=== PATIENT | male | born 1950 | race Caucasian/White ===

== ENCOUNTER 2017-11-13 11:09 | Inpatient (IN) | payer MEDICARE, OTHER ==
[~2017-11-13] VITALS: Ht 180.3 cm; Wt 67.0 kg
[2017-11-13] MEDS ORDERED: azithromycin/NS 500mg/250ml 250 ML IV ONE (11:20)
[2017-11-13] MEDS ORDERED: CefTRIAXone 2gm/D5W 50ml 50 ML IV ONE (11:20)
[2017-11-13] MEDS ORDERED: normal saline 1000ML IV soln IV ONE (11:20)
[2017-11-13] MEDS ORDERED: ipratropium/albuterol 3ml nebule NEB ONE (11:30)
[2017-11-13] MEDS ORDERED: methylPREDNISolone sod succ 125mg/2ml vial IV ONE (11:30)
[2017-11-13 11:49] LABS: BASOPHILS # (AUTO) 0.1 X10'3 (0-0.2); BASOPHILS % (AUTO) 2.1 % (0-1); EOSINOPHILS % (AUTO) 0.7 % (0-6); HEMATOCRIT 39.1 % (42.0-52.0); HEMOGLOBIN 13.3 g/dl (14.0-17.9); LYMPHOCYTES # (AUTO) 0.8 X10'3 (1.1-4.8); LYMPHOCYTES % (AUTO) 15.3 % (21-51); MEAN CORPUSCULAR HEMOGLOBIN 31.7 PG (27.0-31.0); MEAN CORPUSCULAR HGB CONC 33.9 % (33.0-36.5); MEAN CORPUSCULAR VOLUME 93.3 FL (78-98); MEAN PLATELET VOLUME 7.3 FL (7.4-10.4); MONOCYTES # (AUTO) 0.5 X10'3 (0-0.9); MONOCYTES % (AUTO) 9.4 % (2-12); NEUTROPHILS # (AUTO) 3.7 X10'3 (1.8-7.7); NEUTROPHILS % (AUTO) 72.5 % (42-75); PLATELET COUNT 190 X10'3 (140-440); RED BLOOD COUNT 4.18 X10'6 (4.70-6.10); RED CELL DISTRIBUTION WIDTH 13.6 % (11.5-14.5); WHITE BLOOD COUNT 5.1 X10'3 (4.5-11.0)
[2017-11-13 12:09] LABS: ALANINE AMINOTRANSFERASE 11 U/L (12-78); ALBUMIN 3.8 G/DL (3.4-5.0); ALBUMIN/GLOBULIN RATIO 1.1 (1.1-1.5); ALKALINE PHOSPHATASE 83 IU/L (46-116); ANION GAP 7 (8-16); ASPARTATE AMINO TRANSFERASE 13 U/L (10-37); BILIRUBIN,TOTAL 0.7 MG/DL (0.1-1.0); BLOOD UREA NITROGEN 13 MG/DL (7-18); BUN/CREATININE RATIO 13.3 (5.4-32.0); CALCIUM 8.8 MG/DL (8.5-10.1); CHLORIDE 99 MMOL/L (99-107); CREATININE 0.98 MG/DL (0.60-1.10); GLUCOSE 98 MG/DL (70-104); SODIUM 138 MMOL/L (135-145); TOTAL PROTEIN 7.4 G/DL (6.4-8.2); eGFR 76 ML/MIN
[2017-11-13 12:13] LABS: POTASSIUM 2.8 MMOL/L (3.5-5.1)
[2017-11-13] MEDS ORDERED: potassium Cl oral solution 20 MEQ/15 ML PO ONE (12:20)
[2017-11-13 12:24] LABS: CLARITY,URINE CLEAR (Clear); COLOR,URINE YELLOW (Yellow); GLUCOSE, URINE NEGATIVE (Neg); KETONES,URINE NEGATIVE (Neg); LEUKOCYTE ESTERASE ,URINE NEGATIVE (Neg); NITRITES, URINE NEGATIVE (Neg); OCCULT BLOOD,URINE SMALL (Neg); PROTEIN,URINE NEGATIVE (Neg)
[2017-11-13 12:32] LABS: UA COLLECTION TYPE STRAIGHT CATH
[2017-11-13 12:33] LABS: RBC,URINE 0-2 /HPF (0-2); WBC,URINE 0-4 /HPF (0-4)
[2017-11-13 12:34] LABS: BACTERIA,URINE FEW /HPF (Neg); SQUAMOUS EPITHELIAL CELL,UR MODERATE /LPF (FEW); TRANSITIONAL EPI CELLS,URINE FEW /HPF
[2017-11-13] MEDS ORDERED: magnesium hydroxide 30ml (MOM) UD suspension PO PRN (14:50)
[2017-11-13] MEDS ORDERED: mag hydrox/Alum hydrox/simeth 30ml oral suspension PO PRN (14:50)
[2017-11-13] MEDS ORDERED: ipratropium/albuterol 3ml nebule NEB PRN (14:50)
[2017-11-13] MEDS ORDERED: ondansetron/PF 4mg/2ml inj IV PRN (14:50)
[2017-11-13] MEDS ORDERED: magnesium 4gm in 100ml NS 100 ML IV PRN (14:50)
[2017-11-13] MEDS ORDERED: potassium Cl 20 mEq SR tablet PO PRN ×2 (14:50)
[2017-11-13] MEDS ORDERED: acetaminophen 325mg tablet PO PRN (14:50)
[2017-11-13] MEDS ORDERED: magnesium 1gm/100ml D5W IVPB 100 ML IV PRN (14:50)
[2017-11-13] MEDS ORDERED: potassium Cl 40MEQ/NS 500ml 500 ML IV PRN ×2 (14:50)
[2017-11-13] MEDS ORDERED: CLON-528 PO (14:58)
[2017-11-13] MEDS ORDERED: CLON0.252 PO ×2 (14:58)
[2017-11-13] MEDS ORDERED: AMA100C PO (14:58)
[2017-11-13] MEDS ORDERED: ALBU1POW2 INH (14:58)
[2017-11-13] MEDS ORDERED: CARB1TAB23 PO ×3 (14:58)
[2017-11-13] MEDS ORDERED: FLUT100D2 INH (14:58)
[2017-11-13] MEDS ORDERED: DOCU100C41 PO (14:58)
[2017-11-13] MEDS ORDERED: BUSP5TAB3 (14:58)
[2017-11-13] MEDS ORDERED: FINA5TAB11 PO (14:58)
[2017-11-13] MEDS ORDERED: GLYC1TAB11 PO (15:31)
[2017-11-13] MEDS ORDERED: LINA72CA PO (15:33)
[2017-11-13] MEDS ORDERED: OXYB5TAB11 PO (15:34)
[2017-11-13] MEDS ORDERED: PHEN95TA44 (15:35)
[2017-11-13] MEDS ORDERED: POLY17PO10 PO (15:36)
[2017-11-13] MEDS ORDERED: SENN-161 PO (15:37)
[2017-11-13] MEDS ORDERED: TERA5CAP4 PO (15:38)
[2017-11-13] MEDS ORDERED: TRAZ-219 PO (15:39)
[2017-11-13 17:20] VITALS: BP 190/101
[2017-11-13] MEDS: heparin, porcine 5000 units/ml vial SQ SCH (17:53)
[2017-11-13] MEDS: normal saline 1000ml 1,000 ML IV SCH (17:53)
[2017-11-13 20:00] VITALS: BP 147/96
[2017-11-13] MEDS: BUDESONIDE 0.25 MG/2 ML AMPUL.NEB IH SCH (20:00)
[2017-11-13] MEDS: sennosides 8.6mg tablet PO SCH (20:53)
[2017-11-13] MEDS: docusate sod 100mg capsule PO SCH (20:53)
[2017-11-13] MEDS: terazosin 5mg capsule PO SCH (20:54)
[2017-11-13] MEDS ORDERED: carbidoba-levodopa 25-100mg tablet PO SCH (21:00)
[2017-11-13] MEDS ORDERED: traZODone 50mg tablet PO SCH (21:00)
[2017-11-13] MEDS: carbidoba-levodopa 25-100mg tablet PO SCH (21:23)
[2017-11-13 23:30] VITALS: BP 149/62
[2017-11-14 00:20] VITALS: BP 177/85
[2017-11-14] MEDS ORDERED: clonazePAM 0.5mg tablet PO SCH ×3 (00:25→14:00)
[2017-11-14] MEDS: heparin, porcine 5000 units/ml vial SQ SCH ×2 (00:58→08:29)
[2017-11-14] MEDS: carbidoba-levodopa 25-100mg tablet PO SCH ×5 (03:00→12:50)
[2017-11-14 06:27] LABS: BASOPHILS % (AUTO) 0.4 % (0-1); EOSINOPHILS % (AUTO) 0.1 % (0-6); HEMATOCRIT 34.8 % (42.0-52.0); HEMOGLOBIN 12.2 g/dl (14.0-17.9); LYMPHOCYTES % (AUTO) 21.3 % (21-51); MEAN CORPUSCULAR HEMOGLOBIN 32.7 PG (27.0-31.0); MEAN CORPUSCULAR HGB CONC 35.2 % (33.0-36.5); MEAN CORPUSCULAR VOLUME 92.9 FL (78-98); MEAN PLATELET VOLUME 7.4 FL (7.4-10.4); MONOCYTES # (AUTO) 0.6 X10'3 (0-0.9); MONOCYTES % (AUTO) 11.8 % (2-12); NEUTROPHILS # (AUTO) 3.2 X10'3 (1.8-7.7); NEUTROPHILS % (AUTO) 66.4 % (42-75); PLATELET COUNT 162 X10'3 (140-440); RED BLOOD COUNT 3.74 X10'6 (4.70-6.10); RED CELL DISTRIBUTION WIDTH 13.9 % (11.5-14.5); WHITE BLOOD COUNT 4.8 X10'3 (4.5-11.0)
[2017-11-14 06:43] LABS: ALANINE AMINOTRANSFERASE 8 U/L (12-78); ALBUMIN 3.2 G/DL (3.4-5.0); ALKALINE PHOSPHATASE 70 IU/L (46-116); ANION GAP 5 (8-16); ASPARTATE AMINO TRANSFERASE 16 U/L (10-37); BILIRUBIN,TOTAL 0.5 MG/DL (0.1-1.0); BLOOD UREA NITROGEN 13 MG/DL (7-18); BUN/CREATININE RATIO 16.7 (5.4-32.0); CALCIUM 8.4 MG/DL (8.5-10.1); CHLORIDE 106 MMOL/L (99-107); CHOL/HDL RATIO 2.3 (0.00-4.99); CHOLESTEROL 137 MG/DL (0-200); CREATININE 0.78 MG/DL (0.60-1.10); GLUCOSE 98 MG/DL (70-104); HDL CHOLESTEROL 59 MG/DL (35-60); LDL CHOLESTEROL 69 MG/DL (50-100); MAGNESIUM 1.7 MG/DL (1.5-2.4); POTASSIUM 3.6 MMOL/L (3.5-5.1); SODIUM 142 MMOL/L (135-145); TOTAL CARBON DIOXIDE 31.5 MMOL/L (24-32); TOTAL PROTEIN 6.4 G/DL (6.4-8.2); TRIGLYCERIDES 56 MG/DL (20-135); eGFR > 90 ML/MIN
[2017-11-14] MEDS: normal saline 1000ml 1,000 ML IV SCH (07:26)
[2017-11-14] MEDS: BUDESONIDE 0.25 MG/2 ML AMPUL.NEB IH SCH (07:30)
[2017-11-14 07:45] VITALS: BP 144/77
[2017-11-14] MEDS ORDERED: K and/or MAG REPLACEMENT MC SCH (08:00)
[2017-11-14] MEDS ORDERED: finasteride 5mg tablet PO SCH (08:00)
[2017-11-14] MEDS: sennosides 8.6mg tablet PO SCH (08:27)
[2017-11-14] MEDS: terazosin 5mg capsule PO SCH (08:27)
[2017-11-14] MEDS: docusate sod 100mg capsule PO SCH (08:28)
[2017-11-14 11:59] VITALS: BP 126/70
[2017-11-14] MEDS ORDERED: POTA-82 PO (14:38)
== END 2017-11-14 15:30 | disposition home or self-care (01) | DRG 71 ==
LOC: ER 11:09 → ED HOLD 14:46 → EDBEDREQ 15:50 → SUR 3N 17:10
PROVIDERS: ADMIT Family Medicine; ATTEND Family Medicine
DX: G93.40 Encephalopathy, unspecified (principal); I48.92 Unspecified atrial flutter; G20 Parkinson's disease; J44.9 Chronic obstructive pulmonary disease, unspecified; I10 Essential (primary) hypertension; E87.6 Hypokalemia; F41.8 Other specified anxiety disorders; N40.0 Benign prostatic hyperplasia without lower urinary tract symptoms; Z88.8 Allergy status to other drugs, medicaments and biological substances; Z79.51 Long term (current) use of inhaled steroids; Z79.899 Other long term (current) drug therapy; Z87.891 Personal history of nicotine dependence; Z80.1 Family history of malignant neoplasm of trachea, bronchus and lung
CPT/HCPCS: 36415; 70450; 71045; 80053; 80061; 81001; 82948; 83605; 83735; 84145; 85025; 87040; 87070; 92616; 93005; 93306; 94640; 94760; 96365; 96368; 96375; 97110; 97116; 97161; 99285; A4649; J0456; J0696; J1644; J2930; J3480; J7030

== ENCOUNTER 2018-12-09 21:35 | Emergency (ER) | payer MEDICARE, OTHER ==
[~2018-12-09] VITALS: Ht 180.3 cm; Wt 59.0 kg
[~2018-12-09 21:35] MED LIST: ALBU1POW2 INH; AMA100C PO; BUSP5TAB3; CARB1TAB23 PO; CLON-528 PO; CLON0.252 PO; DOCU100C41 PO; FINA5TAB11 PO; FLUT100D2 INH; GLYC1TAB11 PO; LINA72CA PO; OXYB5TAB16 PO; PHEN95TA44; POLY17PO10 PO; POTA-82 PO; SENN-162 PO; TERA5CAP4 PO; TRAZ-219 PO
[2018-12-09] MEDS ORDERED: TRAM50TA2 PO (22:39)
[2018-12-09] MEDS ORDERED: HYDROcodone/acetaminophen 5mg/325mg tablet PO ONE (22:40)
[2018-12-09 23:08] VITALS: BP 187/111
== END 2018-12-09 22:58 | disposition home or self-care (01) ==
LOC: ER 21:36
DX: S22.31XA Fracture of one rib, right side, initial encounter for closed fracture (principal); G20 Parkinson's disease; M25.552 Pain in left hip; F02.80 Dementia in other diseases classified elsewhere, unspecified severity, without behavioral disturbance, psychotic disturbance, mood disturbance, and anxiety; I10 Essential (primary) hypertension; J44.9 Chronic obstructive pulmonary disease, unspecified; F41.9 Anxiety disorder, unspecified; F32.9 Major depressive disorder, single episode, unspecified; Z79.899 Other long term (current) drug therapy; W18.39XA Other fall on same level, initial encounter; Y93.89 Activity, other specified; Y92.090 Kitchen in other non-institutional residence as the place of occurrence of the external cause; Y99.8 Other external cause status
CPT/HCPCS: 71101; 99284

== ENCOUNTER 2019-02-15 02:49 | Emergency (ER) | payer MEDICARE ==
[~2019-02-15] VITALS: Ht 180.3 cm; Wt 61.4 kg
[~2019-02-15 02:49] MED LIST changes: -TRAZ-219 PO; +TRAZ-256 PO
[2019-02-15 03:57] LABS: BASOPHILS # (AUTO) 0.1 X10'3 (0-0.2); BASOPHILS % (AUTO) 0.9 % (0-1); EOSINOPHILS # (AUTO) 0.3 X10'3 (0-0.9); EOSINOPHILS % (AUTO) 4.6 % (0-6); HEMATOCRIT 37.3 % (42.0-52.0); HEMOGLOBIN 12.9 g/dl (14.0-17.9); LYMPHOCYTES # (AUTO) 1.4 X10'3 (1.1-4.8); LYMPHOCYTES % (AUTO) 18.1 % (21-51); MEAN CORPUSCULAR HEMOGLOBIN 31.8 PG (27.0-31.0); MEAN CORPUSCULAR HGB CONC 34.8 g/dL (33.0-36.5); MEAN CORPUSCULAR VOLUME 91.6 FL (78-98); MEAN PLATELET VOLUME 6.9 FL (7.4-10.4); MONOCYTES # (AUTO) 0.5 X10'3 (0-0.9); MONOCYTES % (AUTO) 6.3 % (2-12); NEUTROPHILS # (AUTO) 5.3 X10'3 (1.8-7.7); NEUTROPHILS % (AUTO) 70.1 % (42-75); PLATELET COUNT 205 X10'3 (140-440); RED BLOOD COUNT 4.07 X10'6 (4.70-6.10); RED CELL DISTRIBUTION WIDTH 13.2 % (11.5-14.5); WHITE BLOOD COUNT 7.6 X10'3 (4.5-11.0)
[2019-02-15 04:11] LABS: ALANINE AMINOTRANSFERASE 18 U/L (12-78); ALBUMIN 3.5 G/DL (3.4-5.0); ALBUMIN/GLOBULIN RATIO 0.9 (1.1-1.5); ALKALINE PHOSPHATASE 129 IU/L (46-116); ANION GAP 9 (8-16); ASPARTATE AMINO TRANSFERASE 44 U/L (10-37); BILIRUBIN,TOTAL 0.2 MG/DL (0.1-1.0); BLOOD UREA NITROGEN 19 MG/DL (7-18); BUN/CREATININE RATIO 21.8 (5.4-32.0); CALCIUM 8.5 MG/DL (8.5-10.1); CHLORIDE 103 MMOL/L (99-107); CREATININE 0.87 MG/DL (0.60-1.10); GLUCOSE 150 MG/DL (70-104); POTASSIUM 3.1 MMOL/L (3.5-5.1); SODIUM 143 MMOL/L (135-145); TOTAL CARBON DIOXIDE 31.2 MMOL/L (24-32); TOTAL PROTEIN 7.4 G/DL (6.4-8.2); eGFR 87 ML/MIN
[2019-02-15] MEDS ORDERED: potassium Cl 20 mEq SR tablet PO STA (04:50)
[2019-02-15] MEDS ORDERED: POTASSIUM BICARB 20meq eff tab 20 MEQ TABLET.EFF PO ONE (05:35)
[2019-02-15 05:59] VITALS: BP 200/116
== END 2019-02-15 06:03 | disposition home or self-care (01) ==
LOC: ER 02:50
DX: R07.89 Other chest pain (principal); E87.6 Hypokalemia; I10 Essential (primary) hypertension; J44.9 Chronic obstructive pulmonary disease, unspecified; Z87.891 Personal history of nicotine dependence; Z98.890 Other specified postprocedural states; Z79.899 Other long term (current) drug therapy
CPT/HCPCS: 36415; 71045; 80053; 83605; 85025; 87040; 99284

== ENCOUNTER 2019-12-10 18:28 | Emergency (ER) | payer MEDICARE ==
[~2019-12-10] VITALS: Ht 180.3 cm; Wt 60.0 kg
[~2019-12-10 18:28] MED LIST changes: -SENN-162 PO; +SENN-263 PO
[2019-12-10 21:20] VITALS: BP 184/85
[2019-12-12 12:13] LABS: OCCULT BLOOD STOOL NEGATIVE (Neg)
== END 2019-12-10 21:09 | disposition home or self-care (01) ==
LOC: ER 18:28
DX: Z00.8 Encounter for other general examination (principal); K62.5 Hemorrhage of anus and rectum; K59.00 Constipation, unspecified; I10 Essential (primary) hypertension; J44.9 Chronic obstructive pulmonary disease, unspecified; F41.9 Anxiety disorder, unspecified; F32.9 Major depressive disorder, single episode, unspecified; Z98.890 Other specified postprocedural states; Z79.899 Other long term (current) drug therapy
CPT/HCPCS: 82272; 99284

== ENCOUNTER 2020-03-13 19:20 | Emergency (ER) | payer OTHER, MEDICARE ==
[~2020-03-13] VITALS: Ht 177.8 cm; Wt 54.5 kg
[2020-03-13] MEDS ORDERED: aspirin 81mg tab.chew PO ONE (19:30)
--- NOTE | 2020-03-13 19:39 | NUR ---
patient took three baby aspirin before coming to er
[2020-03-13 20:14] LABS: BASOPHILS # (AUTO) 0.1 X10'3 (0-0.2); BASOPHILS % (AUTO) 0.6 % (0-1); EOSINOPHILS % (AUTO) 0.3 % (0-6); HEMATOCRIT 36.5 % (42.0-52.0); HEMOGLOBIN 12.2 g/dl (14.0-17.9); LYMPHOCYTES # (AUTO) 0.8 X10'3 (1.1-4.8); LYMPHOCYTES % (AUTO) 6.3 % (21-51); MEAN CORPUSCULAR HEMOGLOBIN 30.7 PG (27.0-31.0); MEAN CORPUSCULAR HGB CONC 33.5 g/dL (33.0-36.5); MEAN CORPUSCULAR VOLUME 91.7 FL (78-98); MEAN PLATELET VOLUME 6.8 FL (7.4-10.4); MONOCYTES # (AUTO) 0.9 X10'3 (0-0.9); MONOCYTES % (AUTO) 7.1 % (2-12); NEUTROPHILS # (AUTO) 10.7 X10'3 (1.8-7.7); NEUTROPHILS % (AUTO) 85.7 % (42-75); PLATELET COUNT 190 X10'3 (140-440); RED BLOOD COUNT 3.98 X10'6 (4.70-6.10); RED CELL DISTRIBUTION WIDTH 13.8 % (11.5-14.5); WHITE BLOOD COUNT 12.5 X10'3 (4.5-11.0)
[2020-03-13 20:30] LABS: ALBUMIN 3.4 G/DL (3.4-5.0); ALBUMIN/GLOBULIN RATIO 0.8 (1.1-1.5); ALKALINE PHOSPHATASE 104 IU/L (46-116); ANION GAP 9 (8-16); ASPARTATE AMINO TRANSFERASE 14 U/L (10-37); BILIRUBIN,TOTAL 0.6 MG/DL (0.1-1.0); BLOOD UREA NITROGEN 19 MG/DL (7-18); BUN/CREATININE RATIO 24.7 (5.4-32.0); CALCIUM 8.5 MG/DL (8.5-10.1); CHLORIDE 101 MMOL/L (99-107); CREATININE 0.77 MG/DL (0.60-1.10); GLUCOSE 120 MG/DL (70-104); POTASSIUM 3.4 MMOL/L (3.5-5.1); SODIUM 140 MMOL/L (135-145); TOTAL CARBON DIOXIDE 30.2 MMOL/L (24-32); TOTAL PROTEIN 7.5 G/DL (6.4-8.2); eGFR > 90 ML/MIN
[2020-03-13 20:36] LABS: ALANINE AMINOTRANSFERASE < 6 U/L (12-78)
[2020-03-13 21:36] VITALS: BP 180/105
== END 2020-03-13 21:47 | disposition home or self-care (01) ==
LOC: ER 19:20
DX: R07.89 Other chest pain (principal); R06.02 Shortness of breath; I10 Essential (primary) hypertension; J44.9 Chronic obstructive pulmonary disease, unspecified; F41.9 Anxiety disorder, unspecified; F32.9 Major depressive disorder, single episode, unspecified; F17.200 Nicotine dependence, unspecified, uncomplicated; Z98.890 Other specified postprocedural states; Z79.899 Other long term (current) drug therapy
CPT/HCPCS: 36415; 70450; 71045; 80053; 83880; 84484; 85025; 93005; 99285

== ENCOUNTER 2021-06-29 11:26 | Emergency (ER) | payer OTHER, MEDICARE ==
[~2021-06-29] VITALS: Ht 177.8 cm; Wt 59.1 kg
[2021-06-29 11:30] VITALS: BP 115/59
[2021-06-29] MEDS ORDERED: midazolam 1 mg/ML 2ml injection ONE (11:58)
== END 2021-06-29 12:44 | disposition home or self-care (01) ==
LOC: ER 11:27
DX: B02.9 Zoster without complications (principal); R21 Rash and other nonspecific skin eruption; I10 Essential (primary) hypertension; J44.9 Chronic obstructive pulmonary disease, unspecified; F41.9 Anxiety disorder, unspecified; F32.A Depression, unspecified; Z98.890 Other specified postprocedural states; Z79.899 Other long term (current) drug therapy
CPT/HCPCS: 99284; J2250

== ENCOUNTER 2021-10-19 16:45 | Emergency (ER) | payer OTHER, MEDICARE ==
[~2021-10-19 16:45] MED LIST changes: +CARB-313 PO; -CARB1TAB23 PO
[2021-10-19] MEDS ORDERED: normal saline 1000ML IV soln IV ONE (16:50)
[2021-10-19 17:12] LABS: CLARITY,URINE CLEAR (Clear); COLOR,URINE YELLOW (Yellow); GLUCOSE, URINE NEGATIVE (Neg); KETONES,URINE NEGATIVE (Neg); LEUKOCYTE ESTERASE ,URINE NEGATIVE (Neg); NITRITES, URINE NEGATIVE (Neg); OCCULT BLOOD,URINE LARGE (Neg); PH,URINE 5.5 (4.8-8.0); PROTEIN,URINE 30 mg/dl (Neg); UROBILINOGEN,URINE 0.2 E.U/dL (0.2-1.0)
[2021-10-19 17:15] LABS: UA COLLECTION TYPE URINAL
[2021-10-19 17:19] LABS: WBC,URINE NONE SEEN /HPF (0-4)
[2021-10-19 17:20] LABS: BACTERIA,URINE NONE SEEN /HPF (Neg); MUCUS STRANDS NONE SEEN /LPF (Neg); SQUAMOUS EPITHELIAL CELL,UR FEW /LPF (FEW)
[2021-10-19 17:50] LABS: ALBUMIN 3.5 G/DL (3.4-5.0); ALKALINE PHOSPHATASE 102 IU/L (46-116); ANION GAP 5 (8-16); ASPARTATE AMINO TRANSFERASE 23 U/L (10-37); BILIRUBIN,TOTAL 0.4 MG/DL (0.1-1.0); BLOOD UREA NITROGEN 18 MG/DL (7-18); CALCIUM 8.1 MG/DL (8.5-10.1); CHLORIDE 101 MMOL/L (99-107); GLUCOSE 100 MG/DL (70-104); POTASSIUM 3.7 MMOL/L (3.5-5.1); SODIUM 137 MMOL/L (135-145); TOTAL CARBON DIOXIDE 30.6 MMOL/L (24-32); TOTAL PROTEIN 7.1 G/DL (6.4-8.2); eGFR 83 ML/MIN
[2021-10-19 17:51] LABS: ALANINE AMINOTRANSFERASE < 6 U/L (12-78); BASOPHILS % (AUTO) 0.4 % (0-1); EOSINOPHILS % (AUTO) 0 % (0-6); HEMATOCRIT 36.8 % (42.0-52.0); HEMOGLOBIN 12.3 g/dl (14.0-17.9); LYMPHOCYTES # (AUTO) 0.9 X10'3 (1.1-4.8); LYMPHOCYTES % (AUTO) 14.6 % (21-51); MEAN CORPUSCULAR HEMOGLOBIN 31.6 PG (27.0-31.0); MEAN CORPUSCULAR HGB CONC 33.4 g/dL (33.0-36.5); MEAN CORPUSCULAR VOLUME 94.7 FL (78-98); MEAN PLATELET VOLUME 7.2 FL (7.4-10.4); MONOCYTES # (AUTO) 0.9 X10'3 (0-0.9); MONOCYTES % (AUTO) 13.8 % (2-12); NEUTROPHILS # (AUTO) 4.4 X10'3 (1.8-7.7); NEUTROPHILS % (AUTO) 71.2 % (42-75); PLATELET COUNT 131 X10'3 (140-440); RED BLOOD COUNT 3.89 X10'6 (4.70-6.10); RED CELL DISTRIBUTION WIDTH 14.4 % (11.5-14.5); WHITE BLOOD COUNT 6.2 X10'3 (4.5-11.0)
[2021-10-25] MEDS ORDERED: acetaminophen 325mg tablet PO PRN (20:10)
[2021-10-25] MEDS ORDERED: magnesium 2GM in 50ml NS 50 ML IV PRN (20:10)
[2021-10-25] MEDS ORDERED: magnesium Cl slow-release 64mg tablet PO PRN (20:10)
[2021-10-25] MEDS ORDERED: magnesium hydroxide 30ml (MOM) UD suspension PO PRN (20:10)
[2021-10-25] MEDS ORDERED: PERFLUTREN PROTEIN-A MICROSPHR (Optison) 0.22 MG/ML 3ML VIAL IV ONE (20:10)
[2021-10-25] MEDS ORDERED: normal saline 1000ml 1,000 ML IV SCH (20:10)
[2021-10-25] MEDS ORDERED: POTASSIUM BICARB 20meq eff tab 20 MEQ TABLET.EFF PO PRN ×2 (20:10)
[2021-10-25] MEDS ORDERED: ondansetron/PF 4mg/2ml inj IV PRN (20:10)
[2021-10-25] MEDS ORDERED: mag hydrox/Alum hydrox/simeth 30ml oral suspension PO PRN (20:10)
[2021-10-25] MEDS ORDERED: potassium CL 10mEq/100ml bag 100 ML IV PRN (20:10)
[2021-10-25] MEDS ORDERED: magnesium 4gm in 100ml NS 100 ML IV PRN (20:10)
[2021-10-26] MEDS ORDERED: K and/or MAG REPLACEMENT MC SCH (08:00)
[2021-10-26] MEDS ORDERED: docusate sod 100mg capsule PO SCH (08:00)
== END 2021-10-19 21:38 | disposition home or self-care (01) ==
LOC: ER 16:45
DX: R53.1 Weakness (principal); G20 Parkinson's disease; I10 Essential (primary) hypertension; J44.9 Chronic obstructive pulmonary disease, unspecified
CPT/HCPCS: 36415; 70450; 71045; 80053; 81001; 83605; 84145; 84484; 85025; 87040; 93005; 99285; J7030